=== PATIENT | male | born 1945 | race Caucasian/White ===

== ENCOUNTER 2019-02-19 19:12 | Inpatient (IN) | payer MEDICARE ==
[2019-02-19 19:42] LABS: #Basophils 0.1 thou/uL (0.0-0.2); #Eosinphils 0.3 thou/uL (0.0-0.7); #Lymphocytes 4.6 thou/uL (1.20-3.40); #Neutrophils 4.2 thou/uL (1.40-6.50); %Basophils 1.4 % (0.0-1.0); %Eosinophils 3.2 % (0.0-10.0); %Lymphocytes 45.1 % (21.0-51.0); %Monocytes 9.5 % (0.0-10.0); %Neutrophils 40.9 % (42.0-75.0); Hemoglobin 14.1 g/dL (14.0-18.0); Mean Corpuscular HGB CONC 31.5 g/dL (32.0-36.0); Mean Corpuscular Hemoglobin 30.4 pg (27.0-31.0); Mean Corpuscular Volume 96.5 fL (78.0-98.0); Mean Platelet Volume 7.5 fL (7.4-10.4); Platelet Count 195 thou/uL (130-400); RBC Distribution Width 12.9 % (11.5-14.5); Red Blood Cell (RBC) Count 4.65 mill/uL (4.70-6.10); White Blood Cell (WBC) Count 10.2 thou/uL (4.8-10.8)
[2019-02-19 19:48] LABS: Actual Bicarbonate (HCO3a) 13.5 mEq/L (22-28); Analyzer IN Cardio ER; Base Excess (BEa) -17.4 mEq/L (-2.0 to +3.0); Calcium, Ionized 1.17 mmol/L (1.12-1.30); Carboxyhemoglobin (COHb) 0.3 gm% (0.0-3.0); Hemoglobin (Hb) 12.7 g/dL (14.0-18.0); O2 Tension (PaO2) 139.5 mmHg (> 70.0); Potassium - ABG Lab 3.84 mmol/L (3.70-5.30)
[2019-02-19 19:49] LABS: INR-International Normal Ratio 1.1; PTT 36.5 SEC (22.9-36.1); Prothrombin Time 14.5 SEC (12.0-14.7)
[2019-02-19 19:52] LABS: Puncture Site RRA; pH, Arterial 7.02 (7.35-7.45)
[2019-02-19 19:53] LABS: ALT (SGPT) 114 U/L (8-55); AST (SGOT) 99 U/L (5-34); Alkaline Phosphatase 96 U/L (40-150); Anion Gap 23 mmol/L (10-20); BUN (Urea Nitrogen) 14 mg/dL (8.4-25.7); Bilirubin, Total 0.4 mg/dL (0.2-1.2); Calc. Creatinine Clearance 0 mL/min (70-130); Calcium 9.5 mg/dL (7.8-10.44); Carbon Dioxide 18 mmol/L (23-31); Chloride 98 mmol/L (98-107); Estimated GFR-MDRD 57; Glucose 171 mg/dL (83-110); Lipase 56 U/L (8-78); Potassium 3.9 mmol/L (3.5-5.1); Sodium 135 mmol/L (136-145)
[2019-02-19 19:57] LABS: Bilirubin Negative (Negative); Blood, Urine Trace (Negative); Clarity CLEAR (Clear); Glucose, Urine (Dipstick) Negative (Negative); Leukocyte Negative (Negative); Nitrite Negative (Negative); Protein, Urine (Dipstick) Negative (Neg-Trace); Specific Gravity, Urine 1.003 (1.002-1.036); Urobilinogen 0.2 mg/dL (0.2-1.0)
[2019-02-19 19:59] LABS: Bacteria/HPF None Seen HPF (None Seen); Hyaline Casts/LPF 0-3 HYALINE CAST LPF (0-3 Hyaline); Pathc Cast-AUWi Flag 0.13 (0-2.49); RBC/HPF 0-3 HPF (0-3); Squamous Epithelial 0-3 HPF (0-3); WBC/HPF 0-3 HPF (0-3)
--- NOTE | 2019-02-19 20:02 | RAD ---
RADIOGRAPH CHEST 1 VIEW: DATE: 02/19/2019 Time: 7:31 PM HISTORY: Status post intubation in 73-year-old male FINDINGS: There are no airspace densities, pulmonary edema, or cardiomegaly. The lateral costophrenic angles ar e sharp. The defibrillation paddle overlies right upper lobe. Dorsal column stimulator leads reaches midthoracic spine. It is uncertain whether this is a supine or upright image; no obvious pneu mothorax detected. Endotracheal tube distal tip is at the jerilyn. IMPRESSION: 1. No acute cardiopulmonary findings. 2. Endotracheal tube distal tip at jerilyn.
[2019-02-19] MEDS ORDERED: Fentanyl 100 MCG/2 ML VIAL ONE ×2 (20:04→22:19)
[2019-02-19] MEDS ORDERED: Norepinephrine 8 MG/0.9% NS 250 ML ONE (20:12)
[2019-02-19] MEDS ORDERED: Heparin 10,000 UNITS/1 ML VIAL ONE (20:13)
[2019-02-19] MEDS ORDERED: Bivalirudin 250 MG VIAL ONE (20:56)
[2019-02-19] MEDS ORDERED: Clopidogrel Bisulfate 300 MG TAB ONE (20:56)
[2019-02-19] MEDS ORDERED: Aspirin Chewable 81 MG TAB ONE (20:56)
[2019-02-19] MEDS ORDERED: Nitroglycerin 100MG/250ML BOT 250 ML ONE (20:57)
[2019-02-19 21:00] LABS: CKMB 1.9 ng/mL (0-6.6)
[2019-02-19] MEDS ORDERED: Morphine 2 MG/ML SYRINGE SLOW IVP PRN ×2 (21:08→21:34)
[2019-02-19] MEDS ORDERED: Morphine 4 MG/ML VIAL SLOW IVP PRN (21:08)
[2019-02-19] MEDS ORDERED: Sodium Chloride 0.9% 1,000 ML IV SCH (21:15)
[2019-02-19] MEDS ORDERED: DISCONTINUE PREVIOUS NARCOTIC PAIN MEDICATIONS AND BENZODIAZEPINES FS SCH (21:34)
[2019-02-19] MEDS ORDERED: Fentanyl BOLUS 250 ML IVPB PRN (21:34)
[2019-02-19] MEDS ORDERED: Propofol BOLUS 1,000 MG/100 ML VIAL IV PRN (21:34)
[2019-02-19] MEDS ORDERED: Propofol 1,000 MG/100 ML VIAL IV ONE (21:35)
[2019-02-19] MEDS ORDERED: Acetaminophen 1,000 MG in Premix Bag 1 BAG IVPB PRN (22:04)
[2019-02-19 22:11] LABS: #Basophils 0.1 thou/uL (0.0-0.2); #Eosinphils 0.2 thou/uL (0.0-0.7); #Lymphocytes 1.2 thou/uL (1.20-3.40); #Monocytes 0.9 thou/uL (0.11-0.59); #Neutrophils 14.3 thou/uL (1.40-6.50); %Basophils 0.4 % (0.0-1.0); %Eosinophils 1.1 % (0.0-10.0); %Lymphocytes 7.4 % (21.0-51.0); %Monocytes 5.2 % (0.0-10.0); Hemoglobin 13.3 g/dL (14.0-18.0); Mean Corpuscular HGB CONC 33.1 g/dL (32.0-36.0); Mean Corpuscular Hemoglobin 30.6 pg (27.0-31.0); Mean Corpuscular Volume 92.6 fL (78.0-98.0); Mean Platelet Volume 7.1 fL (7.4-10.4); Platelet Count 200 thou/uL (130-400); RBC Distribution Width 12.7 % (11.5-14.5); Red Blood Cell (RBC) Count 4.33 mill/uL (4.70-6.10); White Blood Cell (WBC) Count 16.6 thou/uL (4.8-10.8)
[2019-02-19] MEDS ORDERED: Vecuronium 10 MG VIAL ONE (22:18)
[2019-02-19 22:24] LABS: ALT (SGPT) 201 U/L (8-55); AST (SGOT) 234 U/L (5-34); Albumin 3.5 g/dL (3.4-4.8); Alkaline Phosphatase 105 U/L (40-150); Anion Gap 15 mmol/L (10-20); BUN (Urea Nitrogen) 15 mg/dL (8.4-25.7); Bilirubin, Total 0.5 mg/dL (0.2-1.2); Calc. Creatinine Clearance 0 mL/min (70-130); Calcium 8.2 mg/dL (7.8-10.44); Carbon Dioxide 22 mmol/L (23-31); Chloride 102 mmol/L (98-107); Estimated GFR-MDRD 64; Glucose 136 mg/dL (83-110); Potassium 4.5 mmol/L (3.5-5.1); Protein, Total 5.5 g/dL (5.8-8.1); Sodium 134 mmol/L (136-145)
[2019-02-19] MEDS ORDERED: Sterile Water 10 ML ONE (22:49)
[2019-02-19] MEDS: fentaNYL Citrate/PF 2,000 MCG in Sodium Chloride 0.9% 60 ML IV SCH (22:53)
[2019-02-19] MEDS ORDERED: Artificial Tears 18 DROP/0.9 ML EA EYE PRN (22:57)
[2019-02-19] MEDS ORDERED: Lidocaine 1% (PF) 30 ML VIAL SC SCH (23:00)
[2019-02-19] MEDS ORDERED: Lidocaine 1% (PF) 30 ML VIAL ONE (23:33)
[2019-02-19 23:37] LABS: #Lymphocytes 0.5 thou/uL (1.20-3.40); #Neutrophils 10.5 thou/uL (1.40-6.50); %Eosinophils 0.3 % (0.0-10.0); %Lymphocytes 3.9 % (21.0-51.0); %Monocytes 8.5 % (0.0-10.0); %Neutrophils 87.2 % (42.0-75.0); Hemoglobin 12.1 g/dL (14.0-18.0); Mean Corpuscular HGB CONC 33.4 g/dL (32.0-36.0); Mean Corpuscular Hemoglobin 31.1 pg (27.0-31.0); Mean Corpuscular Volume 93.3 fL (78.0-98.0); Mean Platelet Volume 7.2 fL (7.4-10.4); Platelet Count 151 thou/uL (130-400); RBC Distribution Width 12.7 % (11.5-14.5); Red Blood Cell (RBC) Count 3.89 mill/uL (4.70-6.10)
[2019-02-19 23:43] LABS: INR-International Normal Ratio 1.5; PTT 66.5 SEC (22.9-36.1); Prothrombin Time 18.4 SEC (12.0-14.7)
[2019-02-19 23:53] LABS: Lactic Acid 1.8 mmol/L (0.5-2.2)
[2019-02-19 23:56] LABS: Calcium 8.2 mg/dL (7.8-10.44); Magnesium 2.2 mg/dL (1.6-2.6); Phosphorus 2.4 mg/dL (2.3-4.7)
[2019-02-20 00:02] LABS: Anion Gap 13 mmol/L (10-20); BUN (Urea Nitrogen) 15 mg/dL (8.4-25.7); Calc. Creatinine Clearance 51 mL/min (70-130); Calcium 8.1 mg/dL (7.8-10.44); Carbon Dioxide 24 mmol/L (23-31); Chloride 102 mmol/L (98-107); Estimated GFR-MDRD 61; Glucose 133 mg/dL (83-110); Magnesium 2.3 mg/dL (1.6-2.6); Phosphorus 2.5 mg/dL (2.3-4.7); Potassium 3.9 mmol/L (3.5-5.1); Sodium 135 mmol/L (136-145)
--- NOTE | 2019-02-20 00:16 | HP ---
HISTORY: Boaz Harris is a 73-year-old white male, who has previous history of coronary artery stent placement at [facility] in [place]. After his catheterization procedure, records were obtained from [facility]. On October 07, 2017, he underwent placement of PROMUS 2.75 x 28 mm stent in the mid LAD post dilated with 3 mm balloon. His states that he just takes one aspirin a day. He does not take any statins. He was at [facility] on [address] when he started complaining of chest pain. He bent over to mushroom picker something and fell forward and was unresponsive. Bystander started CPR. When paramedics arrived, he was in ventricular fibrillation. He was shocked two times and then brought to the emergency room. In the emergency room, he received amiodarone 150 mg IV, magnesium and two amps of bicarb. EKG showed anterior ST-elevation myocardial infarction and it was felt best to take him to the wood preserving plant laborer, even though he was unresponsive. PAST MEDICAL HISTORY: Coronary artery disease, COPD, benign prostatic hypertrophy. MEDICATIONS: 1. Aspirin 81 mg q.a.m. 2. Flomax 0.4 mg daily. ALLERGIES: CODEINE. OPERATIONS: Unknown. SOCIAL HISTORY: Unknown. FAMILY HISTORY: Unknown. REVIEW OF SYSTEMS: Unobtainable. PHYSICAL EXAMINATION: VITAL SIGNS: Blood pressure 132/70, pulse of 115. HEENT: Pupils are sluggishly reactive to light. There was significant laceration over his right eyebrow. This will be tended after going to the cardiac wood preserving plant laborer. NECK: C-collar is in place. CHEST: Reveals late expiratory wheezing. CARDIOVASCULAR: S1 and S2 normal without any S3, S4, or murmurs. ABDOMEN: Normal bowel sounds without tenderness. EXTREMITIES: Revealed no edema. NEUROLOGICAL: The patient is unresponsive except to painful stimuli and does withdrawal. LABORATORY DATA: EKG revealed [address]-elevation in V2 and [address]-segment elevation in V3 through V5. Hemoglobin 14.1, hematocrit 44.9, white count 10, 200, platelets 195,000. PH 7.02, pCO2 of 54.0, PO2 of 139.5. Sodium 135, potassium 3.9, chloride 98, carbon dioxide 18, BUN 14, creatinine 1.25, troponin I 0.063, AST 99, and ALT 114. IMPRESSION: 1. Anterior ST-elevation myocardial infarction. 2. Previous placement of stent in the mid LAD. 3. Unknown cholesterol status. 4. History of asthma and chronic obstructive pulmonary disease. 5. Elevated liver function tests of uncertain etiology. It was seem like this would be too early to have elevated LFTs from shock liver and these will be followed closely. PLAN: It was felt best to take the patient to the wood preserving plant laborer emergently. Job ID: [id number] MTDD
[2019-02-20 00:33] LABS: CKMB 46.4 ng/mL (0-6.6)
--- NOTE | 2019-02-20 00:41 | CT ---
CT brain. HISTORY: Fall. Noncontrast enhanced CT images of the brain obtained. There is a right frontal scalp hematoma. A right periorbital hematoma is also present. No underlying calvarial fractures seen. There is diffuse cortical atrophy and deep white matter ischemic changes. No evidence of acute intracranial masses or hemorrhages seen. There is areas of increased density wit hin the arteries and intracranial sinuses compatible with recent IV contrast. IMPRESSION: Right frontal scalp and periorbital hematoma.
--- NOTE | 2019-02-20 00:41 | CT ---
CT cervical spine. HISTORY: Fall Axial images are obtained with coronal and sagittal reconstructions. Nasogastric and endotracheal tubes are in place. There is approximately 3 mm of anterolisthesis of C3 on C4 and 3 mm of C4 on C5. Multilevel facet deg enerative changes seen. 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 Changes of spondylosis with sclerotic endplate changes as well as anterior and posterior osteophytes and disc space height loss seen at C6-7. IMPRESSION: Degenerative changes in cervical spine with no evidence of acute cervical spine fracture seen.
[2019-02-20] MEDS ORDERED: Nitroglycerin 50 MG/250 ML BOT 250 ML IVPB SCH (01:00)
[2019-02-20] MEDS: Lorazepam 2 MG/ML VIAL SLOW IVP PRN (01:11)
[2019-02-20] MEDS ORDERED: Sterile Water 10 ML VIAL IVP PRN (01:51)
[2019-02-20] MEDS: Vecuronium 10 MG VIAL IV PRN ×2 (02:00→11:54)
[2019-02-20] MEDS: Propofol 1,000 MG/100 ML VIAL IV PRN (02:55)
--- NOTE | 2019-02-20 04:40 | CON ---
DATE OF CONSULTATION: 02/20/2019 TRAUMA SURGEON: Dr. Flower. HISTORY OF PRESENT ILLNESS: The patient is a 73-year-old male who presented to the emergency department earlier today after an CA. Family reported the patient was at [facility] when he had a syncopal fall striking his head. He was found to be pulseless and in ventricular tachycardia, bystanders started CPR. He was intubated in the field. Subsequently, brought to the emergency department. He was taken to the wharf laborer and a stent was placed. He then was admitted to the ICU. Trauma Surgery team was consulted at that time for evaluation of a laceration over his right brow. CT of the head and C-spine were also ordered for further evaluation for traumatic brain injury or cervical spinal injury. Upon my evaluation, the patient was intubated and sedated. His pupils were equal and reactive bilaterally. He moved his bilateral upper and lower extremities spontaneously, but was not following commands as he was intubated and sedated. Right sided brow wound was oozy and bleeding. The patient had received anticoagulation therapy as well as antiplatelets during his admission. REVIEW OF SYSTEMS: Unable to complete due to the patient's mental status. PAST MEDICAL HISTORY: COPD, BPH, unsure additional history as family is not present and the patient is unresponsive. PAST SURGICAL HISTORY: Unable to obtain due to mentation. SOCIAL HISTORY: Previous tobacco and alcohol use. MEDICATIONS: Unable to obtain due to mentation. ALLERGIES: UNABLE TO OBTAIN DUE TO MENTATION. PHYSICAL EXAMINATION: VITAL SIGNS: Temperature 98.2, pulse 103, respirations 23, oxygen saturation 100% on the ventilator, blood pressure 178/110. PRIMARY SURVEY: Airway intact. The patient intubated on ventilator. Adequate breath sounds bilaterally. 2+ pulses in the bilateral radials, femorals, DPs. GCS is eyes 2, verbal 1, motor 5, for a total of 8T. He has about a 3 cm avulsion laceration above the right brow with oozing, no significant bleeding, and some right periorbital edema and bruising. Head: Normocephalic, right-sided brow hematoma, bruising, and laceration. No other gross palpable skull deformities. EYES: Pupils equal, round, reactive to light, 3 to 2 bilaterally. ENT: No hemotympanum. No epistaxis. No septal hematoma. Midface stable to manipulation. No blood in the oropharynx. Dentition is intact. No anterior neck injury/crepitus/tenderness. No step-offs or deformities. Nontender. C-collar in place. CHEST: Nontender. No crepitus, no abrasions, or ecchymosis noted. Equal chest movement. ABDOMEN: Soft, nontender, nondistended. PELVIS: Stable to palpation, nontender, no abrasions or ecchymosis. RECTAL: Deferred. GENITOURINARY: Normal external genitalia. Very light hematuria. EXTREMITIES: No gross deformities. No abrasions or ecchymosis. 2+ pulses in bilateral radials, femorals, and DPs. BACK/SPINE: No step-offs or deformities or tenderness to palpation of the thoracic or lumbar spine. No abrasions or ecchymosis noted. NEURO: Moves all extremities spontaneously. LABORATORY FINDINGS: White count 12.0, hemoglobin 12.1, hematocrit 36.2, platelets 151. INR 1.5. Sodium 135, potassium 3.9, chloride 109, carbon dioxide 24, BUN 15, creatinine 1.18, glucose 133, phos 2.5, magnesium 2.3. Troponin 4.93. OBJECTIVE: 1. Chest x-ray demonstrates no acute cardiopulmonary findings, endotracheal tube to the tip of jerilyn. 2. CT of the brain demonstrates right frontal scalp and periorbital hematoma. 3. CT of the C-spine demonstrates degenerative changes in the cervical spine with no evidence of acute cervical spine fractures seen. ASSESSMENT: 1. Status post syncopal fall. 2. Myocardial infarction, status post catheterization by Cardiology. 3. Laceration to right brow. PLAN: The patient received a CT of the head and C-spine which were negative for injuries. C-collar was removed by the Trauma Service. Right brow laceration was closed with sutures. Sutures to stay in for 5 days. The patient does not require any further imaging by Trauma Department at this time. Trauma Team will complete a tertiary survey in the morning during rounds. Please contact Trauma Team if concern for further injuries are noted. The patient was seen and evaluated by Dr. Flower and myself this morning in the ICU. Job ID: [id number] [facility]
[2019-02-20 07:07] LABS: Actual Bicarbonate (HCO3a) 21.8 mEq/L (22-28); Base Excess (BEa) -3.4 mEq/L (-2.0 to +3.0); Calcium, Ionized 1.13 mmol/L (1.12-1.30); Carboxyhemoglobin (COHb) 0.5 gm% (0.0-3.0); Hemoglobin (Hb) 12.7 g/dL (14.0-18.0); O2 Tension (PaO2) 168.6 mmHg (> 70.0); Potassium - ABG Lab 3.48 mmol/L (3.70-5.30); pH, Arterial 7.36 (7.35-7.45)
[2019-02-20 07:08] LABS: Puncture Site RRA
[2019-02-20 08:02] LABS: #Lymphocytes 0.7 thou/uL (1.20-3.40); #Monocytes 1.8 thou/uL (0.11-0.59); #Neutrophils 16.1 thou/uL (1.40-6.50); %Eosinophils 0.1 % (0.0-10.0); %Lymphocytes 3.6 % (21.0-51.0); %Monocytes 9.9 % (0.0-10.0); %Neutrophils 86.4 % (42.0-75.0); Hemoglobin 12.8 g/dL (14.0-18.0); Mean Corpuscular HGB CONC 32.2 g/dL (32.0-36.0); Mean Corpuscular Hemoglobin 30.4 pg (27.0-31.0); Mean Corpuscular Volume 94.6 fL (78.0-98.0); Mean Platelet Volume 7.4 fL (7.4-10.4); Platelet Count 134 thou/uL (130-400); RBC Distribution Width 12.9 % (11.5-14.5); Red Blood Cell (RBC) Count 4.22 mill/uL (4.70-6.10); White Blood Cell (WBC) Count 18.6 thou/uL (4.8-10.8)
[2019-02-20 08:07] LABS: INR-International Normal Ratio 1.2; PTT 40.4 SEC (22.9-36.1); Prothrombin Time 15.7 SEC (12.0-14.7)
[2019-02-20] MEDS: Clopidogrel Bisulfate 75 MG TAB PER TUBE SCH (08:27)
[2019-02-20] MEDS: Aspirin Chewable 81 MG TAB PER TUBE SCH (08:27)
[2019-02-20] MEDS: Sodium Chloride 0.9% 1,000 ML IV SCH ×2 (08:28→20:47)
[2019-02-20 08:39] LABS: ALT (SGPT) 173 U/L (8-55); AST (SGOT) 216 U/L (5-34); Albumin 3.4 g/dL (3.4-4.8); Alkaline Phosphatase 91 U/L (40-150); Anion Gap 15 mmol/L (10-20); BUN (Urea Nitrogen) 16 mg/dL (8.4-25.7); Calc. Creatinine Clearance 59 mL/min (70-130); Calcium 8.7 mg/dL (7.8-10.44); Carbon Dioxide 20 mmol/L (23-31); Cardiac Risk 2.2 (Less than 4.5); Chloride 105 mmol/L (98-107); Cholesterol 145 mg/dl (< 200 Desired); Estimated GFR-MDRD 73; Globulin 1.9 g/dL (2.4-3.5); Glucose 109 mg/dL (83-110); HDL Cholesterol 65 mg/dL (>60 Neg Risk); LDL Cholesterol, Calculated 69 mg/dL; Magnesium 2.3 mg/dL (1.6-2.6); Phosphorus 2.6 mg/dL (2.3-4.7); Potassium 3.7 mmol/L (3.5-5.1); Protein, Total 5.3 g/dL (5.8-8.1); Sodium 136 mmol/L (136-145); Triglycerides 57 mg/dL (Less than 150)
--- NOTE | 2019-02-20 09:11 | CON ---
DATE OF CONSULTATION: 02/20/2019 HISTORY OF PRESENT ILLNESS: Boaz Harris is a 73-year-old gentleman. I spoke to his son this morning. The patient sees [facility] physician, who apparently was at [facility] checking out when he had chest pain and proceeded to have ventricular cardiac arrhythmias. En route CPR was performed for apparently 10 minutes, he was intubated. He received 200 and 300 joules. He had pulseless electrical activity with VFib. He then received 2 rounds of epinephrine, 180 mg of ketamine, intubated. During his fall, he sustained injury to his right eyebrow and frontal area. C-collar was placed in. was present last night. She was at home sleeping. He sees [facility] physician. Previous cardiac history is noted by Dr. Monk, local shot core drill operator helper. PAST MEDICAL HISTORY: COPD, tobacco abuse, quit smoking years ago, asthma, hypertension, back pain. ALLERGIES: CODEINE. MEDICATIONS: Home medicine unknown. Additional information is obtained by Dr. Monk from the includes previous cath at [facility] in October 2017, but a year ago, placement of his stent in the mid LAD. Dr. Monk stated this was completely occluded. He underwent emergency cardiac cath and a stent insertion. His initial EKG showed anterior segment myocardial infarction. SOCIAL AND FAMILY HISTORY: Unobtainable. PHYSICAL EXAMINATION: GENERAL: His sedation . He is on a cooling protocol. VITAL SIGNS: Pulse is 73, blood pressure is 105/71, saturations are 100%, respiratory rate is 20. HEENT: Pupils are equal. He has traumatic right frontal lobe bruise with his sutures there. CHEST: Decreased breath sounds. No wheezing. CARDIAC: Normal S1 and S2. No gallops. ABDOMEN: No masses. NEUROLOGIC: Difficult to assess at this stage. LABORATORY DATA: PO2 is 168, pCO2 40, pH 7.36, on a 60%, 500 of tidal volume. His lytes are normal. Creatinine is slightly elevated at 1.8. GFR is 61. Troponin is 4.93. AST is 234. IMAGING STUDIES: CT brain showed evidence of, as noted, right frontal scalp and periorbital hematoma. C-spine was negative. Chest x-ray was clear. IMPRESSION: 1. Status post cardiac arrest pulseless electrical activity at least 6 minutes before being intubated before circulation was restored. 2. Emergency cardiac catheterization with a stent placed in as per Dr. Monk's note. 3. Abnormal liver function test. 4. Chronic obstructive pulmonary disease. 5. Mild azotemia. PLAN: He is on Norcuron for his hypothermia protocol. He is on fentanyl sedation. He has been given Plavix and supportive care. We will continue vent support, wean when stable. Get additional information as family arrives. This is a 45-minute critical care time. Job ID: [id number]
--- NOTE | 2019-02-20 09:19 | RAD ---
EXAM: Portable chest INDICATIONS: Ventilator follow-up COMPARISON: 02/19/2019 FINDINGS: ET tube, NG tube, and dorsal stimulator leads are unchanged. Increasing parenchymal opacity in the medial right lung base consistent with infiltrate and/or atelec tasis. Vascular markings normal. Heart size normal. IMPRESSION: Increasing parenchymal opacity in the medial right lung base.
[2019-02-20 11:05] LABS: Actual Bicarbonate (HCO3a) 24.7 mEq/L (22-28); Base Excess (BEa) -2.6 mEq/L (-2.0 to +3.0); Calcium, Ionized 1.16 mmol/L (1.12-1.30); Carboxyhemoglobin (COHb) 0.6 gm% (0.0-3.0); Hemoglobin (Hb) 13.1 g/dL (14.0-18.0); O2 Tension (PaO2) 64.3 mmHg (> 70.0); Potassium - ABG Lab 4.34 mmol/L (3.70-5.30); pH, Arterial 7.29 (7.35-7.45)
[2019-02-20 11:08] LABS: Puncture Site RBA
--- NOTE | 2019-02-20 11:48 | PRG ---
DATE OF SERVICE: 02/20/2019 SUBJECTIVE: Mr. Harris is a 73-year-old man, who is admitted following VFib cardiac arrest with apparent myocardial infarction, status post cardiac catheterization. He has fallen, striking his head apparently at the time of his cardiac event. He sustained laceration to right eyebrow, which has been repaired by Trauma. I have personally reviewed his head and cervical spine CT scan obtained last night as part of my evaluation, which revealed no acute intracranial pathology or cervical spine trauma. Currently, the patient is on full mechanical ventilator support. He is in fact sedated and pharmacologically paralyzed. He remains therefore unavailable for any neurological or physical examination. The repaired laceration remains intact. No significant associated soft tissue hematoma present. Trauma Surgery would therefore sign off this case at this time and further management to the Critical Care and Cardiology Services respectively. Job ID: [id number]
[2019-02-20 12:16] LABS: #Lymphocytes 0.5 thou/uL (1.20-3.40); #Monocytes 0.7 thou/uL (0.11-0.59); #Neutrophils 11.6 thou/uL (1.40-6.50); %Eosinophils 0.2 % (0.0-10.0); %Lymphocytes 3.7 % (21.0-51.0); %Monocytes 5.8 % (0.0-10.0); %Neutrophils 90.3 % (42.0-75.0); Hemoglobin 12.9 g/dL (14.0-18.0); Mean Corpuscular HGB CONC 32.5 g/dL (32.0-36.0); Mean Corpuscular Hemoglobin 30.6 pg (27.0-31.0); Mean Corpuscular Volume 94.2 fL (78.0-98.0); Mean Platelet Volume 7.3 fL (7.4-10.4); Platelet Count 148 thou/uL (130-400); RBC Distribution Width 12.9 % (11.5-14.5); Red Blood Cell (RBC) Count 4.21 mill/uL (4.70-6.10); White Blood Cell (WBC) Count 12.8 thou/uL (4.8-10.8)
[2019-02-20 12:20] LABS: INR-International Normal Ratio 1.2; PTT 35.5 SEC (22.9-36.1); Prothrombin Time 15.1 SEC (12.0-14.7)
[2019-02-20 12:44] LABS: Anion Gap 12 mmol/L (10-20); BUN (Urea Nitrogen) 16 mg/dL (8.4-25.7); Calc. Creatinine Clearance 59 mL/min (70-130); Calcium 8.7 mg/dL (7.8-10.44); Carbon Dioxide 25 mmol/L (23-31); Chloride 103 mmol/L (98-107); Estimated GFR-MDRD 72; Glucose 97 mg/dL (83-110); Magnesium 2.3 mg/dL (1.6-2.6); Phosphorus 3.7 mg/dL (2.3-4.7); Potassium 4.3 mmol/L (3.5-5.1); Sodium 136 mmol/L (136-145)
[2019-02-20 13:12] LABS: CKMB 121.4 ng/mL (0-6.6)
[2019-02-20 18:12] LABS: Hemoglobin 14.3 g/dL (14.0-18.0); Mean Corpuscular HGB CONC 32.5 g/dL (32.0-36.0); Mean Corpuscular Hemoglobin 30.6 pg (27.0-31.0); Mean Corpuscular Volume 94.2 fL (78.0-98.0); Mean Platelet Volume 7.6 fL (7.4-10.4); Platelet Count 164 thou/uL (130-400); Red Blood Cell (RBC) Count 4.66 mill/uL (4.70-6.10); White Blood Cell (WBC) Count 10.8 thou/uL (4.8-10.8)
[2019-02-20 18:20] LABS: INR-International Normal Ratio 1.1; Prothrombin Time 14.5 SEC (12.0-14.7)
[2019-02-20 18:26] LABS: Band 30 % (5-11); Lymphocytes 3 % (21-51); MDiff Complete? YES; Metamyelocyte 1 % (0-0); Monocytes 5 % (0-10); Neutrophil 60 % (42-75); Platelet Morphology Comment Appears Adequate; RBC Morphology Normal; Toxic Granulation SLIGHT; Vacuoles SLIGHT
[2019-02-20 18:37] LABS: Anion Gap 13 mmol/L (10-20); BUN (Urea Nitrogen) 16 mg/dL (8.4-25.7); Calc. Creatinine Clearance 48 mL/min (70-130); Carbon Dioxide 27 mmol/L (23-31); Chloride 103 mmol/L (98-107); Estimated GFR-MDRD 57; Glucose 95 mg/dL (83-110); Magnesium 2.2 mg/dL (1.6-2.6); Phosphorus 4.2 mg/dL (2.3-4.7); Potassium 4.9 mmol/L (3.5-5.1); Sodium 138 mmol/L (136-145)
[2019-02-20 19:19] LABS: CKMB 89.2 ng/mL (0-6.6); Critical Call CKMB RESULT DECREASING
[2019-02-20] MEDS: Cefepime 1 GM in Sodium Chloride 0.9% 100 ML IVPB SCH (20:44)
[2019-02-20] MEDS: fentaNYL Citrate/PF 2,000 MCG in Sodium Chloride 0.9% 60 ML IV SCH (21:59)
[2019-02-20] MEDS ORDERED: Norepinephrine 8 MG/250 ML BAG IVPB PRN (23:44)
[2019-02-21] MEDS: Propofol 1,000 MG/100 ML VIAL IV PRN (00:09)
[2019-02-21] MEDS: Sodium Chloride 0.9% 1,000 ML IV SCH ×3 (01:30→21:50)
[2019-02-21] MEDS ORDERED: Sodium Chloride 0.9% 250 ML IVPB SCH (01:30)
[2019-02-21 06:45] LABS: Hemoglobin 12.2 g/dL (14.0-18.0); Mean Corpuscular HGB CONC 31.9 g/dL (32.0-36.0); Mean Corpuscular Hemoglobin 30.2 pg (27.0-31.0); Mean Corpuscular Volume 94.7 fL (78.0-98.0); Mean Platelet Volume 7.7 fL (7.4-10.4); Platelet Count 147 thou/uL (130-400); RBC Distribution Width 13.3 % (11.5-14.5); Red Blood Cell (RBC) Count 4.03 mill/uL (4.70-6.10); White Blood Cell (WBC) Count 11.8 thou/uL (4.8-10.8)
[2019-02-21 07:01] LABS: Phosphorus 4.7 mg/dL (2.3-4.7)
[2019-02-21 07:04] LABS: ALT (SGPT) 112 U/L (8-55); AST (SGOT) 129 U/L (5-34); Albumin 2.9 g/dL (3.4-4.8); Alkaline Phosphatase 68 U/L (40-150); Anion Gap 14 mmol/L (10-20); BUN (Urea Nitrogen) 25 mg/dL (8.4-25.7); Bilirubin, Total 0.7 mg/dL (0.2-1.2); Calc. Creatinine Clearance 35 mL/min (70-130); Calcium 8.3 mg/dL (7.8-10.44); Carbon Dioxide 23 mmol/L (23-31); Chloride 105 mmol/L (98-107); Estimated GFR-MDRD 40; Globulin 1.8 g/dL (2.4-3.5); Glucose 107 mg/dL (83-110); Potassium 4.9 mmol/L (3.5-5.1); Protein, Total 4.7 g/dL (5.8-8.1); Sodium 137 mmol/L (136-145)
[2019-02-21 07:38] LABS: Base Excess (BEa) -4.6 mEq/L (-2.0 to +3.0); CO2 Tension 46.2 mmHg (35.0-45.0); Calcium, Ionized 1.15 mmol/L (1.12-1.30); Hemoglobin (Hb) 12.7 g/dL (14.0-18.0); O2 Tension (PaO2) 75.3 mmHg (> 70.0); Potassium - ABG Lab 4.63 mmol/L (3.70-5.30)
[2019-02-21 07:39] LABS: Puncture Site RRA
[2019-02-21 08:06] LABS: Band 46 % (5-11); Eosinophils 1 % (0-10); Lymphocytes 11 % (21-51); MDiff Complete? YES; Monocytes 2 % (0-10); Neutrophil 40 % (42-75); Platelet Morphology Comment Appears Adequate; RBC Morphology Normal
[2019-02-21] MEDS: Cefepime 1 GM in Sodium Chloride 0.9% 100 ML IVPB SCH ×2 (08:35→21:48)
[2019-02-21] MEDS: Clopidogrel Bisulfate 75 MG TAB PER TUBE SCH (08:36)
[2019-02-21] MEDS: Aspirin Chewable 81 MG TAB PER TUBE SCH (08:36)
--- NOTE | 2019-02-21 08:40 | RAD ---
CHEST 1 VIEW: HISTORY: Respiratory insufficiency. COMPARISON: 02/20/2019. FINDINGS: Life support tubes remain in place. Dorsal column stimulator leads. Bilateral patchy perihilar and bilateral lower lobe interstitial and alveolar opacity changes have worsened since the prior study co ncerning for pneumonia, pneumonitis, or edema. IMPRESSION: Worsening bilateral mid and lower lung zone interstitial and alveolar parenchymal changes, evidence f or pneumonia or pneumonitis versus asymmetric pulmonary edema. Continue short-term followup for pablo ring or stability. POS: OFF
--- NOTE | 2019-02-21 09:47 | PRG ---
DATE OF SERVICE: 02/21/2019 SUBJECTIVE: This morning, he is intubated in the vent, still sedated. OBJECTIVE: VITAL SIGNS: Pulse 75, blood pressure 110/67, saturations are 90%, and respirations 20. HEENT: Pupils are equal. pin point. CHEST: Decreased breath sounds. No wheezing. CARDIAC: Normal S1 and S2. No gallops. ABDOMEN: No masses. LABORATORY DATA: White count 11,000, hemoglobin and hematocrit 12 and 38, and platelet count is 147. He has a big left shift. Creatinine was increased to 1.70. IMPRESSION: 1. Myocardial infarction status post emergent stent. 2. Traumatic fall, right frontal laceration. 3. Azotemia. 4. Probably anoxic injury. PLAN: 1. We will stop all sedation and paralytics. Continue antibiotics. 2. Assess his neurological status once he is off all sedation. Family to make a decision long-term care and input. 3. We will start nutrition in the meantime and PT. 4. One-half hour of critical time. Job ID: [id number] [facility]
--- NOTE | 2019-02-21 12:02 | EKG ---
Test Reason : Blood Pressure : / mmHG Vent. Rate : 059 BPM Atrial Rate : 115 BPM P-R Int : 000 ms QRS Dur : 076 ms QT Int : 538 ms P-R-T Axes : 000 088 137 degrees QTc Int : 532 ms Poor EKG quality likely electrical interference Probable atrial fibrillation with slow ventricular response Inferior infarct , age undetermined Severe anterolateral ischemia Prolonged QT Abnormal ECG When compared with ECG of 19-FEB-2019 19:42, (Unconfirmed) Significant changes have occurred Confirmed by DR. oLra RAMIREZ ([id number]) on 02/21/2019 12:01:54 PM Referred By: JEREL Confirmed By:DR. Lora RAMIREZ
[2019-02-22] MEDS: Propofol 1,000 MG/100 ML VIAL IV PRN (04:06)
[2019-02-22 05:32] LABS: ALT (SGPT) 99 U/L (8-55); AST (SGOT) 181 U/L (5-34); Albumin 2.7 g/dL (3.4-4.8); Alkaline Phosphatase 62 U/L (40-150); Anion Gap 13 mmol/L (10-20); BUN (Urea Nitrogen) 36 mg/dL (8.4-25.7); Bilirubin, Total 0.6 mg/dL (0.2-1.2); Calc. Creatinine Clearance 36 mL/min (70-130); Calcium 8.3 mg/dL (7.8-10.44); Carbon Dioxide 20 mmol/L (23-31); Chloride 109 mmol/L (98-107); Estimated GFR-MDRD 42; Globulin 1.9 g/dL (2.4-3.5); Glucose 111 mg/dL (83-110); Potassium 4.8 mmol/L (3.5-5.1); Protein, Total 4.6 g/dL (5.8-8.1); Sodium 137 mmol/L (136-145)
[2019-02-22 05:33] LABS: #Lymphocytes 0.4 thou/uL (1.20-3.40); #Monocytes 0.7 thou/uL (0.11-0.59); #Neutrophils 5.2 thou/uL (1.40-6.50); %Basophils 0.3 % (0.0-1.0); %Eosinophils 0.3 % (0.0-10.0); %Lymphocytes 6.8 % (21.0-51.0); %Monocytes 11.5 % (0.0-10.0); %Neutrophils 81.2 % (42.0-75.0); Hemoglobin 9.9 g/dL (14.0-18.0); Mean Corpuscular HGB CONC 33.2 g/dL (32.0-36.0); Mean Corpuscular Hemoglobin 31.5 pg (27.0-31.0); Mean Platelet Volume 8.5 fL (7.4-10.4); Platelet Count 91 thou/uL (130-400); Platelet Morphology Comment Appears Decreased; RBC Distribution Width 13.4 % (11.5-14.5); Red Blood Cell (RBC) Count 3.12 mill/uL (4.70-6.10); White Blood Cell (WBC) Count 6.4 thou/uL (4.8-10.8)
[2019-02-22 07:30] LABS: Actual Bicarbonate (HCO3a) 21.6 mEq/L (22-28); Base Excess (BEa) -3.4 mEq/L (-2.0 to +3.0); CO2 Tension 38.5 mmHg (35.0-45.0); Calcium, Ionized 1.18 mmol/L (1.12-1.30); Carboxyhemoglobin (COHb) 1.3 gm% (0.0-3.0); Hemoglobin (Hb) 10.9 g/dL (14.0-18.0); O2 Tension (PaO2) 72.9 mmHg (> 70.0); Potassium - ABG Lab 4.59 mmol/L (3.70-5.30); pH, Arterial 7.37 (7.35-7.45)
--- NOTE | 2019-02-22 07:43 | RAD ---
EXAM: CHEST ONE VIEW HISTORY: On ventilator. Follow-up evaluation. COMPARISON: 02/21/2019 FINDINGS: Endotracheal tube and nasogastric tubes remain in place unchanged in position. Distal aspect of the n asogastric tube is not visualized. Dorsal column stimulator leads again overlie the thoracic spine. Cardiac silhouette and pulmonary vasculature are within normal limits. There are increased interstiti al densities within the lungs bilaterally greater at each lung base not significantly changed compared to prior study given differences in technique. Vascular calcific lesions are again seen in t he thoracic aorta. No other interval change. IMPRESSION: Increased interstitial densities predominantly at each lung base and perihilar regions which may be r elated to infectious process, and atypical infectious process is a possibility. Asymmetric pulmonary edema is a differential consideration.
[2019-02-22] MEDS: Sodium Chloride 0.9% 1,000 ML IV SCH ×2 (07:54→18:52)
[2019-02-22] MEDS: Cefepime 1 GM in Sodium Chloride 0.9% 100 ML IVPB SCH ×2 (07:54→20:27)
[2019-02-22] MEDS: Aspirin Chewable 81 MG TAB PER TUBE SCH (07:56)
[2019-02-22] MEDS: Clopidogrel Bisulfate 75 MG TAB PER TUBE SCH (07:56)
[2019-02-22 08:08] LABS: Puncture Site L.R.
[2019-02-22 08:09] LABS: ALV-art Gradient 164.175 (0-20)
--- NOTE | 2019-02-22 08:13 | PRG ---
DATE OF SERVICE: 02/22/2019 SUBJECTIVE: This morning, his Diprivan was turned off. He was very agitated, biting his endotracheal tube, had to restart Diprivan. OBJECTIVE: VITAL SIGNS: Blood pressure is slightly elevated 170/80, respiratory rate 22, sats 100%. He is afebrile though yesterday's temperature 100.8. His I's and O's have been consistently good 3363 in and 1086 out. CHEST: Decreased breath sounds. Minimal rhonchi. CARDIAC: Normal S1, S2. No gallops. ABDOMEN: No masses. LABORATORY DATA: Creatinine 1.64, improved from yesterday. BUN is still 36. His albumin is 2.7. Liver function slightly elevated. AST is 181. X-ray shows bilateral lower lung infiltrates. Platelet count is low 91,000. IMPRESSION: 1. Status post cardiac arrest emergency stent. 2. Encephalopathy. 3. Probably anoxic injury. 4. Probably aspiration pneumonia. 5. Thrombocytopenia. He is on broad-spectrum antibiotics Plavix, supportive care. Ativan as needed. I will discuss with family when they arrive. Discuss with Cardiology, when they arrive. Overall, this is a one-half hour of critical time. Job ID: [id number]
[2019-02-22] MEDS ORDERED: Bacteriostatic Water 30 ML VIAL FS PRN (08:44)
[2019-02-22] MEDS: methylPREDNISolone Sod Succ 40 MG VIAL IVP SCH ×2 (09:00→20:28)
[2019-02-22] MEDS ORDERED: Sodium Chloride 0.9% (PF) 10 ML VIAL FS PRN (09:00)
[2019-02-22] MEDS ORDERED: Pantoprazole 40 MG VIAL IVP SCH ×2 (09:00→10:00)
[2019-02-22] MEDS ORDERED: Furosemide 40 MG/4 ML VIAL SLOW IVP SCH (09:15)
[2019-02-22] MEDS: fentaNYL Citrate/PF 2,000 MCG in Sodium Chloride 0.9% 60 ML IV SCH (11:19)
--- NOTE | 2019-02-22 12:07 | OP ---
DATE OF PROCEDURE: 02/22/2019 He bit his endotracheal tube, unable to get any return of tidal volume. Extremely agitated off sedation. Saturations are okay. His vital signs are otherwise stable. It was felt that he needs a new endotracheal tube. The old endotracheal tube was removed. A bite block was placed in, and a 7.5 endotracheal tube was passed via the bronchoscope above the jerilyn. Tube was secured. Air was inflated in the cuff. He was bagged. Saturations are 100%. He was restarted on Diprivan. Bronchoscope was repassed again and there was some pus in the right lung, which was suctioned and lavaged to clear. The patient connected to a volume-cycle respirator. I discussed with his family at length multiple times that we are not going to be able to extubate him until his encephalopathy gets better. They want to get a Neurology input. We will try and get Neurology to see the patient in the next several days. Job ID: [id number]
[2019-02-23] MEDS: Sodium Chloride 0.9% 1,000 ML IV SCH ×2 (04:38→17:05)
[2019-02-23 05:02] LABS: ALT (SGPT) 108 U/L (8-55); AST (SGOT) 228 U/L (5-34); Albumin 2.6 g/dL (3.4-4.8); Alkaline Phosphatase 57 U/L (40-150); Anion Gap 10 mmol/L (10-20); BUN (Urea Nitrogen) 39 mg/dL (8.4-25.7); Bilirubin, Total 0.5 mg/dL (0.2-1.2); Calc. Creatinine Clearance 44 mL/min (70-130); Calcium 8.5 mg/dL (7.8-10.44); Carbon Dioxide 26 mmol/L (23-31); Chloride 108 mmol/L (98-107); Estimated GFR-MDRD 52; Glucose 224 mg/dL (83-110); Potassium 4.4 mmol/L (3.5-5.1); Protein, Total 4.6 g/dL (5.8-8.1); Sodium 140 mmol/L (136-145)
[2019-02-23 05:13] LABS: Band 16 % (5-11); Hemoglobin 8.5 g/dL (14.0-18.0); Lymphocytes 2 % (21-51); MDiff Complete? YES; Mean Corpuscular HGB CONC 32.6 g/dL (32.0-36.0); Mean Corpuscular Hemoglobin 30.9 pg (27.0-31.0); Mean Corpuscular Volume 94.8 fL (78.0-98.0); Mean Platelet Volume 8.9 fL (7.4-10.4); Monocytes 7 % (0-10); Neutrophil 75 % (42-75); Platelet Count 76 thou/uL (130-400); Platelet Morphology Comment Appears Decreased; RBC Distribution Width 13.1 % (11.5-14.5); Red Blood Cell (RBC) Count 2.75 mill/uL (4.70-6.10)
[2019-02-23] MEDS: Cefepime 1 GM in Sodium Chloride 0.9% 100 ML IVPB SCH ×2 (08:41→20:14)
[2019-02-23] MEDS: methylPREDNISolone Sod Succ 40 MG VIAL IVP SCH ×2 (08:41→20:14)
[2019-02-23] MEDS: Pantoprazole 40 MG VIAL IVP SCH (08:42)
[2019-02-23] MEDS: Clopidogrel Bisulfate 75 MG TAB PER TUBE SCH (08:42)
[2019-02-23] MEDS: Aspirin Chewable 81 MG TAB PER TUBE SCH (08:42)
[2019-02-23 08:50] LABS: Actual Bicarbonate (HCO3a) 25.7 mEq/L (22-28); Base Excess (BEa) 0.8 mEq/L (-2.0 to +3.0); Calcium, Ionized 1.22 mmol/L (1.12-1.30); Carboxyhemoglobin (COHb) 0.5 gm% (0.0-3.0); Hemoglobin (Hb) 9.6 g/dL (14.0-18.0); O2 Tension (PaO2) 90.4 mmHg (> 70.0); Potassium - ABG Lab 4.24 mmol/L (3.70-5.30)
--- NOTE | 2019-02-23 08:53 | PRG ---
DATE OF SERVICE: 02/23/2019 SUBJECTIVE: This morning, he is intubated in the vent. He is on Precedex, less agitated. Clearly once the medicine is decreased, he is agitated, he bit his tube. OBJECTIVE: VITAL SIGNS: Pulse 66, blood pressure 93/74, sats 90%, respirations 21, I's and O's have been slightly ahead. CHEST: Bilateral rhonchi. CARDIAC: Normal S1, S2. No gallops. ABDOMEN: No masses. LABORATORY DATA: Creatinine 1.3. BNP is 312, AST is 228. White count 4000, platelet count decreased. ASSESSMENT: 1. Anoxic injury, status post ventricular fibrillation. Status post emergent catheterization with a stent. 2. Chronic obstructive pulmonary disease. 3. Pneumonia. 4. Encephalopathy. PLAN: He is not weanable until his neurological status improves. His echocardiogram shows evidence of hypokinetic apical septal wall, left ventricle. No estimated ejection fraction was given at this stage. Continue supportive care, nutrition, PT, antibiotics. Wean when he is stable. One-half hour of critical time. Job ID: [id number]
[2019-02-23] MEDS ORDERED: Pantoprazole 40 MG VIAL IVP SCH (09:00)
[2019-02-23 09:08] LABS: Puncture Site LBA
--- NOTE | 2019-02-23 09:18 | RAD ---
CHEST 1 VIEW: HISTORY: Dyspnea. Followup. COMPARISON: 02/22/2019. HISTORY: Dyspnea. FINDINGS: Cardiac silhouette is unremarkable. Pulmonary vasculature more engorged than on the prior study with slight interval worsening and widespread reticulonodular interstitial prominence and patchy bibasila r infiltrates. Mediastinum is midline. Lines and tubes appear unchanged in position. Calcification in the aorta. No evidence of pneumothorax. IMPRESSION: Slight interval progression in pulmonary vascular congestion. Chronic interstitial markings and othe r findings are otherwise stable. POS: TPC
[2019-02-23] MEDS: Lorazepam 2 MG/ML VIAL SLOW IVP PRN ×2 (10:10→22:30)
[2019-02-23] MEDS: fentaNYL Citrate/PF 2,000 MCG in Sodium Chloride 0.9% 60 ML IV SCH (23:02)
[2019-02-24] MEDS: Sodium Chloride 0.9% 1,000 ML IV SCH ×2 (00:20→05:04)
[2019-02-24 06:01] LABS: #Lymphocytes 0.2 thou/uL (1.20-3.40); #Monocytes 0.4 thou/uL (0.11-0.59); #Neutrophils 3.8 thou/uL (1.40-6.50); %Basophils 0.1 % (0.0-1.0); %Eosinophils 0.2 % (0.0-10.0); %Lymphocytes 3.4 % (21.0-51.0); %Monocytes 9.1 % (0.0-10.0); %Neutrophils 87.2 % (42.0-75.0); Mean Corpuscular Hemoglobin 31.5 pg (27.0-31.0); Mean Corpuscular Volume 95.5 fL (78.0-98.0); Mean Platelet Volume 8.4 fL (7.4-10.4); Platelet Count 92 thou/uL (130-400); RBC Distribution Width 13.5 % (11.5-14.5); Red Blood Cell (RBC) Count 2.85 mill/uL (4.70-6.10); White Blood Cell (WBC) Count 4.3 thou/uL (4.8-10.8)
[2019-02-24 06:21] LABS: ALT (SGPT) 121 U/L (8-55); AST (SGOT) 194 U/L (5-34); Albumin 2.9 g/dL (3.4-4.8); Alkaline Phosphatase 60 U/L (40-150); Anion Gap 11 mmol/L (10-20); BUN (Urea Nitrogen) 35 mg/dL (8.4-25.7); Bilirubin, Total 0.6 mg/dL (0.2-1.2); Calc. Creatinine Clearance 62 mL/min (70-130); Carbon Dioxide 25 mmol/L (23-31); Chloride 113 mmol/L (98-107); Estimated GFR-MDRD 78; Globulin 2.1 g/dL (2.4-3.5); Glucose 152 mg/dL (83-110); Potassium 4.5 mmol/L (3.5-5.1); Sodium 144 mmol/L (136-145)
[2019-02-24] MEDS: Lorazepam 2 MG/ML VIAL SLOW IVP PRN (07:22)
[2019-02-24] MEDS: Clopidogrel Bisulfate 75 MG TAB PER TUBE SCH (08:47)
[2019-02-24] MEDS: Cefepime 1 GM in Sodium Chloride 0.9% 100 ML IVPB SCH ×2 (08:47→21:52)
[2019-02-24] MEDS: Pantoprazole 40 MG VIAL IVP SCH (08:47)
[2019-02-24] MEDS: methylPREDNISolone Sod Succ 40 MG VIAL IVP SCH (08:48)
[2019-02-24] MEDS: Aspirin Chewable 81 MG TAB PER TUBE SCH (09:09)
--- NOTE | 2019-02-24 10:15 | PRG ---
DATE OF SERVICE: 02/24/2019 SERVICE: Pulmonary Medicine. INTERVAL HISTORY: The patient is actually doing quite well from mentation standpoint. This morning, he opens up his eyes on command. He wiggles his fingers, puts up his thumb, and wiggles his toe on command. That being said , he demonstrates pretty profound weakness. He cannot provide any additional elements of the history at this point. Otherwise, there has been no interval change to his condition. PHYSICAL EXAMINATION: VITAL SIGNS: Afebrile, pulse 63, blood pressure 130/73, respirations 14, and saturation 93% on 23% FiO2 and a PEEP of 5. GENERAL: The patient is awake and alert. The patient is intubated under the influence of some sedation. HEENT: Normocephalic and atraumatic. Sclerae white. Conjunctivae pink. Oral mucosa is moist without lesions. LUNGS: Decent air entry. There is no prolonged expiratory phase. Rhonchi are present. No wheezing or crackles are appreciated. HEART: Normal rate and regular. ABDOMEN: Soft, nontender, and nondistended. Bowel sounds are positive. MUSCULOSKELETAL: No cyanosis or clubbing. No pitting in the bilateral lower extremities. NEUROLOGIC: Grossly nonfocal. LABORATORY DATA: WBC 4.3, hemoglobin 9.0, platelets 92,000, and rebounding. INR 1.1. Creatinine 0.95 and improving. Basic metabolic profile is unremarkable except for an uptrending sodium and chloride. Urinalysis is unremarkable. IMAGING STUDIES: Chest x-ray shows stable findings. Chronic interstitial markings are noted. Lines and tubes remain in good position. ASSESSMENT: 1. Acute hypoxic respiratory failure. 2. Acute myocardial infarction, status post percutaneous coronary intervention with stent placement. 3. Anoxic brain injury, improving. 4. Community-acquired pneumonia. 5. Chronic obstructive pulmonary disease. DISCUSSION AND PLAN: The patient is doing absolutely wonderful from a mentation standpoint. We will introduce a little bit of free water. We will minimize our sedation through time. When he wakes up, spontaneous breathing trial and subsequent extubation will be considered. Pulmonary/Critical Care will continue to follow closely. Critical care time: 30 minutes. Job ID: [id number] MTDD
[2019-02-24] MEDS: Sodium Chloride 0.45% 1,000 ML IV SCH (11:50)
[2019-02-25] MEDS: Sodium Chloride 0.45% 1,000 ML IV SCH (05:35)
[2019-02-25 06:37] LABS: ALT (SGPT) 123 U/L (8-55); AST (SGOT) 153 U/L (5-34); Albumin 2.6 g/dL (3.4-4.8); Alkaline Phosphatase 68 U/L (40-150); Anion Gap 13 mmol/L (10-20); BUN (Urea Nitrogen) 40 mg/dL (8.4-25.7); Bilirubin, Total 0.7 mg/dL (0.2-1.2); Calc. Creatinine Clearance 69 mL/min (70-130); Carbon Dioxide 22 mmol/L (23-31); Chloride 116 mmol/L (98-107); Estimated GFR-MDRD 89; Globulin 2.2 g/dL (2.4-3.5); Glucose 112 mg/dL (83-110); Magnesium 2.8 mg/dL (1.6-2.6); Phosphorus 2.2 mg/dL (2.3-4.7); Potassium 5.2 mmol/L (3.5-5.1); Protein, Total 4.8 g/dL (5.8-8.1); Sodium 146 mmol/L (136-145)
[2019-02-25 07:27] LABS: #Lymphocytes 0.5 thou/uL (1.20-3.40); #Monocytes 0.7 thou/uL (0.11-0.59); #Neutrophils 4.1 thou/uL (1.40-6.50); %Basophils 0.2 % (0.0-1.0); %Eosinophils 0.1 % (0.0-10.0); %Lymphocytes 10.2 % (21.0-51.0); %Monocytes 12.5 % (0.0-10.0); Hemoglobin 9.2 g/dL (14.0-18.0); Mean Corpuscular HGB CONC 32.6 g/dL (32.0-36.0); Mean Corpuscular Hemoglobin 31.2 pg (27.0-31.0); Mean Corpuscular Volume 95.7 fL (78.0-98.0); Mean Platelet Volume 8.6 fL (7.4-10.4); Platelet Count 99 thou/uL (130-400); RBC Distribution Width 13.5 % (11.5-14.5); Red Blood Cell (RBC) Count 2.94 mill/uL (4.70-6.10); White Blood Cell (WBC) Count 5.3 thou/uL (4.8-10.8)
[2019-02-25] MEDS: Pantoprazole 40 MG VIAL IVP SCH (09:11)
[2019-02-25] MEDS: Clopidogrel Bisulfate 75 MG TAB PER TUBE SCH (09:12)
[2019-02-25] MEDS: Aspirin Chewable 81 MG TAB PER TUBE SCH (09:12)
[2019-02-25] MEDS: Cefepime 1 GM in Sodium Chloride 0.9% 100 ML IVPB SCH ×2 (09:12→20:18)
[2019-02-25] MEDS ORDERED: Morphine 4 MG/ML VIAL SLOW IVP PRN (10:05)
[2019-02-25] MEDS: traMADol HCl 50 MG TAB PO SCH ×3 (10:20→22:17)
[2019-02-25] MEDS ORDERED: Sodium Phosphate 30 MMOL in Sodium Chloride 0.9% 250 ML 250 ML IVPB SCH (10:30)
--- NOTE | 2019-02-25 10:31 | PRG ---
DATE OF SERVICE: 02/25/2019 SERVICE: Pulmonary Medicine. INTERVAL HISTORY: The patient extubated just fine yesterday, but shortly after that, he developed increasing discomfort, and increasing somnolence. Ultimately , he had to get bagged again for a short period of time, but then woke back up. He did well for a couple of hours, but then had a similar event. We put him on BiPAP and since then, his chest discomfort and respiratory issues improved dramatically. Overnight, he had absolutely no events. This morning, he is little bit more bradycardic. The Precedex had been weaned very nicely. We gave him a BiPAP break and almost immediately, he started having increasing chest discomfort, associated with rib fractures. He denies any current fevers, chills, nausea, or vomiting. He is having significant chest discomfort without the BiPAP. PHYSICAL EXAMINATION: VITAL SIGNS: Afebrile, pulse 51, blood pressure 132/29, respirations 16, and saturation 98% on 2 L nasal cannula. GENERAL: The patient is awake and alert, mild distress, secondary to discomfort. HEART: Normal rate. Regular. ABDOMEN: Soft, nontender, and nondistended. Bowel sounds are positive. MUSCULOSKELETAL: No cyanosis or clubbing. There is no pitting in the bilateral lower extremities. NEUROLOGIC: Grossly nonfocal. LABORATORY DATA: WBC 5.3, hemoglobin 9.2, platelets 99,000 and stable. Sodium 146, potassium 5.2, chloride 116, creatinine 0.85 and downtrending. AST and ALT continued to trend downward and/or are stable. Phosphorus 2.2. ASSESSMENT: 1. Acute on chronic hypoxic respiratory failure. 2. Acute ST-elevation myocardial infarction, status post percutaneous coronary intervention with stent placement. 3. Ventricular fibrillation/tachycardia arrest, out of hospital, status post return of circulation. 4. Anoxic brain injury, improving. 5. Chronic obstructive pulmonary disease with mild exacerbation. 6. Community-acquired pneumonia, status post full course of antibiotic. 7. Multiple rib fractures. DISCUSSION AND PLAN: We will go on and off the BiPAP through the day. I will initiate a rib fracture protocol. If he cannot tolerate breaks from the BiPAP over the next 24 to 48 hours, he will likely need repeat intubation and subsequent tracheostomy until his chest mechanics improved. I will replace his phosphorus. We will introduce some free water to get the sodium down to touch. He remains a little volume up, but he is auto diuresing gently. We will allow him to continue doing this. Pulmonary/Critical Care will continue to follow along. Job ID: [id number] MTDD
[2019-02-25] MEDS: Acetaminophen 325 MG TAB PO SCH ×3 (11:19→23:15)
[2019-02-25] MEDS: Ibuprofen 600 MG TAB PO SCH ×3 (11:19→22:19)
[2019-02-25] MEDS: Dextrose 5% in Water 1,000 ML IV SCH (11:19)
--- NOTE | 2019-02-25 11:56 | RAD ---
EXAM: Single view of the abdomen HISTORY: Dobbhoff placement COMPARISON: None FINDINGS: Single view of the upper abdomen shows a nonspecific, nonobstructive bowel gas pattern. A D obbhoff tube is seen with its tip in the left upper quadrant of the abdomen, likely within the stomach. No suspicious calcifications are seen. Post surgical changes are seen in the lumbar spine. A spinal stimulation device is visualized with its tip at the T7 level. IMPRESSION: Dobbhoff tube located in the stomach.
[2019-02-25] MEDS: Cyclobenzaprine 10 MG TAB PO PRN (12:00)
[2019-02-25] MEDS: Gabapentin 100 MG CAP PO SCH ×2 (15:20→20:19)
[2019-02-25] MEDS: Famotidine 20 MG TAB PO SCH (20:19)
[2019-02-26] MEDS: traMADol HCl 50 MG TAB PO SCH ×4 (04:19→22:53)
[2019-02-26] MEDS: Ibuprofen 600 MG TAB PO SCH ×4 (04:19→22:54)
[2019-02-26 05:05] LABS: #Eosinphils 0.1 thou/uL (0.0-0.7); #Lymphocytes 0.6 thou/uL (1.20-3.40); #Monocytes 0.7 thou/uL (0.11-0.59); #Neutrophils 5.3 thou/uL (1.40-6.50); %Basophils 0.4 % (0.0-1.0); %Eosinophils 1.4 % (0.0-10.0); %Lymphocytes 9.2 % (21.0-51.0); %Monocytes 10.6 % (0.0-10.0); %Neutrophils 78.4 % (42.0-75.0); Hemoglobin 9.8 g/dL (14.0-18.0); Mean Corpuscular HGB CONC 33.6 g/dL (32.0-36.0); Mean Corpuscular Hemoglobin 31.9 pg (27.0-31.0); Mean Corpuscular Volume 94.9 fL (78.0-98.0); Mean Platelet Volume 8.1 fL (7.4-10.4); Platelet Count 132 thou/uL (130-400); RBC Distribution Width 13.4 % (11.5-14.5); Red Blood Cell (RBC) Count 3.06 mill/uL (4.70-6.10); White Blood Cell (WBC) Count 6.8 thou/uL (4.8-10.8)
[2019-02-26 05:10] LABS: ALT (SGPT) 161 U/L (8-55); AST (SGOT) 167 U/L (5-34); Albumin 2.8 g/dL (3.4-4.8); Alkaline Phosphatase 82 U/L (40-150); Anion Gap 11 mmol/L (10-20); BUN (Urea Nitrogen) 41 mg/dL (8.4-25.7); Bilirubin, Total 1.2 mg/dL (0.2-1.2); Calc. Creatinine Clearance 57 mL/min (70-130); Carbon Dioxide 27 mmol/L (23-31); Chloride 113 mmol/L (98-107); Estimated GFR-MDRD 70; Globulin 1.9 g/dL (2.4-3.5); Glucose 110 mg/dL (83-110); Potassium 3.9 mmol/L (3.5-5.1); Protein, Total 4.7 g/dL (5.8-8.1); Sodium 147 mmol/L (136-145)
[2019-02-26] MEDS: Acetaminophen 325 MG TAB PO SCH ×4 (06:51→23:00)
[2019-02-26] MEDS: Famotidine 20 MG TAB PO SCH ×2 (08:35→20:21)
[2019-02-26] MEDS: Aspirin Chewable 81 MG TAB PER TUBE SCH (08:35)
[2019-02-26] MEDS: Cefepime 1 GM in Sodium Chloride 0.9% 100 ML IVPB SCH ×2 (08:35→20:20)
[2019-02-26] MEDS: Gabapentin 100 MG CAP PO SCH ×3 (08:35→20:20)
[2019-02-26] MEDS: Clopidogrel Bisulfate 75 MG TAB PER TUBE SCH (08:35)
[2019-02-26] MEDS ORDERED: DC Sedation Protocol FS ONE (08:48)
--- NOTE | 2019-02-26 09:06 | PRG ---
DATE OF SERVICE: 02/26/2019 SUBJECTIVE: This morning, he is awake, alert, responsive, less encephalopathic. He was extubated and is doing well. OBJECTIVE: VITAL SIGNS: Saturations are 97% on 3 L, temperature 98, blood pressure 146/60, and heart rate is 60. CHEST: Minimal rhonchi. CARDIAC: Normal S1 and S2. No gallops. ABDOMEN: No masses. DIAGNOSTIC DATA: His liver function is improved. His albumin is 2.8. His white count is 6000. Cultures so far are all negative. ASSESSMENT: 1. Status post myocardial infarction, emergency stent. 2. Respiratory failure with encephalopathy. 3. Aspiration pneumonia. PLAN: We will keep him in the ICU. I am going to stop all his sedation including the Precedex antibiotics switched over to oral medication. He was able to swallow in the next 24 to 48 hours. Await input from Cardiology. Job ID: [id number]
--- NOTE | 2019-02-26 09:32 | PDOC.CTH ---
Cardiology Progress Note - Subjective Confused. No complaints - Objective Vital Signs Temp Pulse Resp Pulse Ox 02/26/19 07:58 97 02/26/19 07:15 98.0 F 02/26/19 06:57 87 9 L 98 02/26/19 06:55 58 L 98 02/26/19 06:00 12 02/26/19 04:00 97.7 F 10 L 02/26/19 03:59 68 02/26/19 00:52 58 L 13 96 02/26/19 00:00 97.9 F Admit Weight 139 lb 5.314 oz Weight 141 lb 3.2 oz 02/25/19 02/26/19 02/27/19 06:59 06:59 06:59 Intake Total 1062 3220 30 Output Total 1315 1235 35 Balance -253 1984 - - Physical Examination General/Neuro: NAD Neck: no JVD present Lungs: unlabored respirations Heart: RRR Abdomen: NT/ND, soft Extremities: + femoral B - Labs Result Diagrams: 02/26/19 04:45 02/26/19 04:45 Troponin/CKMB CK-MB (CK-2) 89.2 ng/mL (0-6.6) H* 02/20/19 17:55 Troponin I 14.530 ng/mL (< 0.028) H* 02/20/19 17:55 - Assessment/Plan AMI Encephalopathy Aspiration pneumonia No CV cnahges Slowly improving on TF ASA, plavix
[2019-02-26] MEDS: Dextrose 5% in Water 1,000 ML IV SCH (13:16)
[2019-02-26] MEDS: Cyclobenzaprine 10 MG TAB PO PRN (20:22)
[2019-02-27] MEDS: Dextrose 5% in Water 1,000 ML IV SCH (02:15)
[2019-02-27] MEDS: Ibuprofen 600 MG TAB PO SCH (04:08)
[2019-02-27] MEDS: traMADol HCl 50 MG TAB PO SCH ×4 (04:08→22:30)
[2019-02-27 04:40] LABS: ALT (SGPT) 144 U/L (8-55); AST (SGOT) 99 U/L (5-34); Albumin 2.6 g/dL (3.4-4.8); Alkaline Phosphatase 86 U/L (40-150); Anion Gap 11 mmol/L (10-20); BUN (Urea Nitrogen) 32 mg/dL (8.4-25.7); Bilirubin, Total 0.8 mg/dL (0.2-1.2); Calc. Creatinine Clearance 63 mL/min (70-130); Calcium 8.9 mg/dL (7.8-10.44); Carbon Dioxide 23 mmol/L (23-31); Chloride 109 mmol/L (98-107); Estimated GFR-MDRD 77; Globulin 2.2 g/dL (2.4-3.5); Glucose 102 mg/dL (83-110); Protein, Total 4.8 g/dL (5.8-8.1); Sodium 139 mmol/L (136-145)
[2019-02-27] MEDS: Acetaminophen 325 MG TAB PO SCH (06:47)
[2019-02-27 07:28] LABS: #Eosinphils 0.3 thou/uL (0.0-0.7); #Monocytes 0.5 thou/uL (0.11-0.59); #Neutrophils 5.6 thou/uL (1.40-6.50); %Basophils 0.3 % (0.0-1.0); %Eosinophils 3.7 % (0.0-10.0); %Lymphocytes 13.3 % (21.0-51.0); %Monocytes 7.2 % (0.0-10.0); %Neutrophils 75.5 % (42.0-75.0); Hemoglobin 10.5 g/dL (14.0-18.0); Mean Corpuscular Hemoglobin 30.8 pg (27.0-31.0); Mean Corpuscular Volume 96.2 fL (78.0-98.0); Mean Platelet Volume 8.1 fL (7.4-10.4); Platelet Count 181 thou/uL (130-400); RBC Distribution Width 13.6 % (11.5-14.5); White Blood Cell (WBC) Count 7.4 thou/uL (4.8-10.8)
[2019-02-27] MEDS ORDERED: traMADol HCl 50 MG TAB PO PRN (08:01)
--- NOTE | 2019-02-27 08:22 | PRG ---
DATE OF SERVICE: 02/27/2019 SUBJECTIVE: This morning, he is little bit more responsive, less encephalopathic. OBJECTIVE: VITAL SIGNS: His blood pressure is 156/85, saturations are 100% on 3 L, pulse 80, respirations 18, and afebrile. CHEST: Decreased breath sounds. No wheezing. CARDIAC: Normal S1 and S2. No gallop. ABDOMEN: No masses. LABORATORY DATA: Unremarkable. His liver function decreased, ALT is 144. IMPRESSION: 1. Status post sudden cardiac //s/p _ stent in the left anterior descending. 2. Congestive heart failure. 3. Respiratory failure. 4. Aspiration pneumonia. 5. Encephalopathy. PLAN: If he is swallowing, I am going to discontinue his IV antibiotics, switch him over to p.o. medication. PT, supportive care. Continue observation in the ICU until he is more stable. Disposition as per Cardiology. We will follow. Job ID: [id number] MTDD
[2019-02-27] MEDS ORDERED: Ibuprofen 800 MG TAB PO PRN (08:33)
[2019-02-27] MEDS: Acetaminophen 500 MG TAB PO SCH ×3 (09:00→20:26)
[2019-02-27] MEDS: Clopidogrel Bisulfate 75 MG TAB PER TUBE SCH (09:00)
[2019-02-27] MEDS: Aspirin Chewable 81 MG TAB PER TUBE SCH (09:00)
[2019-02-27] MEDS: Metoprolol Tartrate 25 MG TAB PO SCH ×2 (09:00→20:26)
[2019-02-27] MEDS: Famotidine 20 MG TAB PO SCH ×2 (09:00→20:26)
[2019-02-27] MEDS: Gabapentin 100 MG CAP PO SCH ×3 (09:01→20:26)
[2019-02-27] MEDS: Cefdinir 300 MG CAP PO SCH ×2 (09:01→20:26)
[2019-02-27] MEDS: Cyclobenzaprine 10 MG TAB PO PRN ×2 (10:47→20:28)
[2019-02-27] MEDS ORDERED: Atorvastatin Calcium 10 MG TAB PO SCH (21:00)
[2019-02-28] MEDS: Acetaminophen 500 MG TAB PO SCH ×4 (03:00→20:43)
[2019-02-28] MEDS: traMADol HCl 50 MG TAB PO SCH ×4 (04:30→22:28)
[2019-02-28 05:15] LABS: #Basophils 0.1 thou/uL (0.0-0.2); #Eosinphils 0.2 thou/uL (0.0-0.7); #Lymphocytes 0.8 thou/uL (1.20-3.40); #Monocytes 0.6 thou/uL (0.11-0.59); #Neutrophils 6.1 thou/uL (1.40-6.50); %Basophils 0.7 % (0.0-1.0); %Eosinophils 2.9 % (0.0-10.0); %Lymphocytes 10.3 % (21.0-51.0); %Monocytes 8.1 % (0.0-10.0); Hemoglobin 10.1 g/dL (14.0-18.0); Mean Corpuscular HGB CONC 31.9 g/dL (32.0-36.0); Mean Corpuscular Hemoglobin 30.2 pg (27.0-31.0); Mean Corpuscular Volume 94.7 fL (78.0-98.0); Mean Platelet Volume 8.1 fL (7.4-10.4); Platelet Count 206 thou/uL (130-400); RBC Distribution Width 13.6 % (11.5-14.5); Red Blood Cell (RBC) Count 3.33 mill/uL (4.70-6.10); White Blood Cell (WBC) Count 7.8 thou/uL (4.8-10.8)
[2019-02-28 05:35] LABS: ALT (SGPT) 92 U/L (8-55); AST (SGOT) 55 U/L (5-34); Albumin 2.5 g/dL (3.4-4.8); Alkaline Phosphatase 85 U/L (40-150); Anion Gap 10 mmol/L (10-20); BUN (Urea Nitrogen) 28 mg/dL (8.4-25.7); Bilirubin, Total 0.8 mg/dL (0.2-1.2); Calc. Creatinine Clearance 64 mL/min (70-130); Calcium 8.8 mg/dL (7.8-10.44); Carbon Dioxide 28 mmol/L (23-31); Chloride 103 mmol/L (98-107); Estimated GFR-MDRD 79; Glucose 95 mg/dL (83-110); Potassium 3.8 mmol/L (3.5-5.1); Protein, Total 4.5 g/dL (5.8-8.1); Sodium 137 mmol/L (136-145)
[2019-02-28 06:17] VITALS: BMI 21.3
[2019-02-28] MEDS: Clopidogrel Bisulfate 75 MG TAB PER TUBE SCH (08:34)
[2019-02-28] MEDS: Cefdinir 300 MG CAP PO SCH ×2 (08:34→20:43)
[2019-02-28] MEDS: Gabapentin 100 MG CAP PO SCH ×3 (08:34→20:43)
[2019-02-28] MEDS: Metoprolol Tartrate 25 MG TAB PO SCH ×2 (08:34→20:43)
[2019-02-28] MEDS: Aspirin Chewable 81 MG TAB PER TUBE SCH (08:34)
[2019-02-28] MEDS: Famotidine 20 MG TAB PO SCH ×2 (08:34→20:43)
[2019-02-28] MEDS: Cyclobenzaprine 10 MG TAB PO PRN (08:35)
--- NOTE | 2019-02-28 08:48 | PRG ---
DATE OF SERVICE: 02/28/2019 SUBJECTIVE: This morning, he is much awake and responsive, no distress. OBJECTIVE: VITAL SIGNS: Saturations are 95% on 2 L, 130\74, blood pressure 126/77, respirations 18. He is afebrile. CHEST: Decreased breath sounds. No wheezing or crackles. CARDIAC: Normal S1, S2. No gallops. ABDOMEN: No masses. LABORATORY DATA: Unremarkable, except for albumin being low at 2.5. Lytes are normal. White count is unremarkable. Platelet count is normal. IMPRESSION: 1. Status post myocardial infarction. 2. Status post anoxic injury, encephalopathy, improved. 3. Aspiration pneumonia, stable. PLAN: PT, supportive care, nutrition. Disposition as per Cardiology. Can probably be transferred over to the telemetry unit. Job ID: [id number] MTDD
[2019-02-28] MEDS: Aspirin Chewable 81 MG TAB PO SCH (09:33)
[2019-02-28] MEDS: Clopidogrel Bisulfate 75 MG TAB PO SCH (09:33)
[2019-02-28] MEDS: Dextrose 5% in Water 1,000 ML IV SCH (14:41)
[2019-03-01] MEDS: traMADol HCl 50 MG TAB PO SCH ×2 (03:38→09:59)
[2019-03-01] MEDS: Acetaminophen 500 MG TAB PO SCH ×4 (03:38→22:08)
[2019-03-01] MEDS ORDERED: Furosemide 20 MG/2 ML VIAL SLOW IVP SCH (08:30)
[2019-03-01] MEDS: Famotidine 20 MG TAB PO SCH ×2 (08:58→22:09)
[2019-03-01] MEDS: Cefdinir 300 MG CAP PO SCH ×2 (08:58→22:09)
[2019-03-01] MEDS: Aspirin Chewable 81 MG TAB PO SCH (08:58)
[2019-03-01] MEDS: Metoprolol Tartrate 25 MG TAB PO SCH ×2 (08:58→22:09)
[2019-03-01] MEDS: Gabapentin 100 MG CAP PO SCH ×3 (08:58→22:09)
[2019-03-01] MEDS: Clopidogrel Bisulfate 75 MG TAB PO SCH (08:58)
--- NOTE | 2019-03-01 09:53 | PRG ---
DATE OF SERVICE: 03/01/2019 SUBJECTIVE: Boaz Harris is better this morning. Still having significant chest wall pain from his fractured ribs. OBJECTIVE: VITAL SIGNS: Saturations are 96% on 2 L, respiratory rate 18, pulse 58, temperature 97.5, blood pressure 127/70. CHEST: No wheezing or crackles. CARDIAC: Normal S1, S2. No gallops. ABDOMEN: No masses. IMPRESSION: 1. Status post myocardial infarction, stent. 2. chronic obstructive pulmonary disease. 3. Pneumonia. PLAN: He appears to be stable enough to go to the outpatient rehab. He can resume his home medication, which includes Symbicort and Combivent. Job ID: [id number]
[2019-03-01] MEDS ORDERED: traMADol HCl 50 MG TAB PO PRN (14:15)
[2019-03-02] MEDS: Acetaminophen 500 MG TAB PO SCH ×3 (04:33→15:04)
[2019-03-02 06:04] LABS: #Basophils 0.1 thou/uL (0.0-0.2); #Eosinphils 0.1 thou/uL (0.0-0.7); #Lymphocytes 0.6 thou/uL (1.20-3.40); #Monocytes 0.8 thou/uL (0.11-0.59); #Neutrophils 6.1 thou/uL (1.40-6.50); %Basophils 0.7 % (0.0-1.0); %Eosinophils 1.4 % (0.0-10.0); %Lymphocytes 8.2 % (21.0-51.0); %Monocytes 10.2 % (0.0-10.0); %Neutrophils 79.6 % (42.0-75.0); Hemoglobin 9.6 g/dL (14.0-18.0); Mean Corpuscular HGB CONC 32.5 g/dL (32.0-36.0); Mean Corpuscular Hemoglobin 30.4 pg (27.0-31.0); Mean Corpuscular Volume 93.7 fL (78.0-98.0); Mean Platelet Volume 7.8 fL (7.4-10.4); Platelet Count 282 thou/uL (130-400); RBC Distribution Width 13.6 % (11.5-14.5); Red Blood Cell (RBC) Count 3.15 mill/uL (4.70-6.10); White Blood Cell (WBC) Count 7.6 thou/uL (4.8-10.8)
[2019-03-02 06:27] LABS: ALT (SGPT) 71 U/L (8-55); AST (SGOT) 52 U/L (5-34); Albumin 2.7 g/dL (3.4-4.8); Alkaline Phosphatase 126 U/L (40-150); Anion Gap 10 mmol/L (10-20); BUN (Urea Nitrogen) 20 mg/dL (8.4-25.7); Bilirubin, Total 0.7 mg/dL (0.2-1.2); Calc. Creatinine Clearance 72 mL/min (70-130); Calcium 8.8 mg/dL (7.8-10.44); Carbon Dioxide 30 mmol/L (23-31); Chloride 102 mmol/L (98-107); Estimated GFR-MDRD 83; Globulin 2.2 g/dL (2.4-3.5); Glucose 102 mg/dL (83-110); Potassium 3.4 mmol/L (3.5-5.1); Protein, Total 4.9 g/dL (5.8-8.1); Sodium 139 mmol/L (136-145)
--- NOTE | 2019-03-02 09:06 | RAD ---
CHEST 1 VIEW: Date: 03/02/19 INDICATION: History of right lower lobe pneumonia. COMPARISON: Prior exam dated 02/23/19. FINDINGS: The extent of the consolidation appears slightly less prominent; however, air space disease remains. This is superimposed on severe COPD change. No perry pleural effusion or pneumothorax is evident. Chr onic osseous change is similar appearing. There is a dorsal column stimulator overlying mid thoracic vertebra. Since the comparison examination, the patient has been extubated with removal of the gastri c catheter. IMPRESSION: 1. Some improvement in the right lower lobe pneumonia. 2. Interval extubation and gastric catheter removal. POS: CET
[2019-03-02] MEDS: Aspirin Chewable 81 MG TAB PO SCH (09:43)
[2019-03-02] MEDS: Metoprolol Tartrate 25 MG TAB PO SCH (09:43)
[2019-03-02] MEDS: Famotidine 20 MG TAB PO SCH (09:44)
[2019-03-02] MEDS: Gabapentin 100 MG CAP PO SCH ×2 (09:44→15:00)
[2019-03-02] MEDS: Clopidogrel Bisulfate 75 MG TAB PO SCH (09:44)
[2019-03-02] MEDS: Cefdinir 300 MG CAP PO SCH (09:45)
[2019-03-02] MEDS: Cyclobenzaprine 10 MG TAB PO PRN (09:55)
--- NOTE | 2019-03-02 10:30 | PRG ---
DATE OF SERVICE: 03/02/2019 SUBJECTIVE: Boaz Harris is a 73-year-old gentleman. This morning, apparently he is coughing some blood. I had reviewed his hemoptysis, some old blood. The right-sided infiltrate in his x-ray is looking better. Some other who out this is probably aggravated by his Plavix and aspirin he is taking. He is weak. OBJECTIVE: VITAL SIGNS: His sats are 95% on 2 L, respirations 16, temperature 97, and blood pressure 125/65. CHEST: Decreased breath sounds. No wheezing. CARDIAC: Normal S1 and S2. No gallops. ABDOMEN: No masses. LABORATORY DATA: His liver function improved. White count 7.2, hemoglobin and hematocrit of 9 and 29. IMPRESSION: 1. Status post respiratory failure, status post myocardial infarction, status post emergency stent. 2. Encephalopathy, anoxic injury, improved. 3. Aspiration pneumonia. PLAN: At this stage, nothing additional to offer. Continue antibiotics as prescribed, neb treatment, supportive care. Hemoptysis worsens and may have to consider adjusting his anticoagulation. Job ID: [id number]
[2019-03-02] MEDS ORDERED: Potassium Chloride 20 MEQ TAB PO SCH (12:30)
[2019-03-02 15:07] VITALS: BP 131/61; TEMP 97.5
--- NOTE | 2019-03-03 05:18 | DIS ---
DATE OF ADMISSION: 02/19/2019 DATE OF DISCHARGE: 03/02/2019 DISCHARGE DIAGNOSIS: 1. Ventricular fibrillation cardiac arrest with bystander CPR. 2. Anterior ST-elevation myocardial infarction with drug-eluting stent placed in the mid LAD for 100% in-stent occlusion, troponin I 14.530. 3. History of mid LAD stent placement at [facility] in October 2017. 4. Ejection fraction 55% to 60%. 5. Negative head CT and C-spine. 6. Right eyebrow laceration closed by trauma service. 7. Shock liver. AST 234, down to 52 and ALT 201, down to 71 at the time of discharge. Statin not started. 8. Hypoxic encephalopathy, improving. 9. Acute kidney injury, resolved. 10. Drop in hemoglobin from 12.2 to 8.5. Pepcid was started with stabilization of hemoglobin around 10. 11. Thrombocytopenia, resolved. 12. Probable aspiration pneumonia. 13. Former smoker. DISCHARGE DISPOSITION: Patient is being discharged to jail in [place]. DISCHARGE DISPOSITION: The patient will follow up with his [facility] transportation security screener. DISCHARGE MEDICATIONS: 1. Furosemide 40 mg q.a.m. 2. KCl 10 mEq daily. 3. Omnicef 300 mg b.i.d. x5 days. 4. Aspirin 81 daily. 5. Plavix 75 mg q.a.m. 6. Pepcid 20 mg b.i.d. 7. DuoNebs q.6 hours. 8. Metoprolol 25 b.i.d. HOSPITAL COURSE: Mr. Harris had previously had a PROMUS 2.75 x 28 mm stent placed in the mid LAD at [facility]. This was post dilated with a 3 mm balloon. He was at [employer] on [address], initially complained of chest pain. He bent over to diamond picker something, fell forward and was unresponsive. He struck his forehead and had a 2 to 3 cm laceration over his right eyebrow. Bystander CPR was started as he was unresponsive without pulse. When paramedics arrived, he was given 2 electrical shocks and then he had spontaneous return of circulation. In the emergency room, he was given amiodarone 150 mg IV, 2 amps of bicarb IV, and magnesium. EKG showed anterior ST-segment elevation consistent with STEMI. He was intubated and unresponsive in the emergency room. However, with bystander CPR, it was felt best to take him to the emergency room urgently. At catheterization, he was found to have a total occlusion of mid LAD stent. There was a 60% first obtuse marginal, 20% mid RCA, 20% right posterolateral stenosis. He underwent placement of a Synergy drug-eluting stent 2.5 x 16 mm with reduction of the stenosis from 100% to 0%. He was transferred to the critical care unit and placed on cooling protocol. It was also felt that he might have developed aspiration pneumonia. His liver function tests were high even at the time of admission, but had been gradually falling. Two days after admission, his creatinine increased to 1.70, however, at the time of discharge, is back to 0.90. Cholesterol 145, triglycerides 57, HDL 65, LDL 69. With his elevated liver function tests, he was not placed on a statin during this admission. He was sedated for approximately 3 days, but gradually weaned from the ventilator. He was initially confused, but this has continued to improve throughout his hospital stay. At the time of discharge, he is alert and oriented x3. Echocardiogram revealed the study to be technically difficult. Ejection fraction was 55% to 60% with hypokinesis of the apical septal wall and apex. There is evidence for diastolic dysfunction. He did have peripheral edema at the time of discharge and was placed on furosemide 40 mg q.a.m. and KCl 10 mEq q.a.m. Job ID: [id number]
== END 2019-03-02 17:01 | DRG 246 ==
LOC: EDBD 19:12 → ERS 19:12 → CCU 21:31 → 2NO 02-28 12:47
PROVIDERS: ADMIT Internal Medicine Cardiovascular Disease; ATTEND Internal Medicine Cardiovascular Disease
PROC: 027034Z Dilation of Coronary Artery, One Artery with Drug-eluting Intraluminal Device, Percutaneous Approach (ICD-10-PCS; 2019-02-19)
PROC: 0HQ1XZZ Repair Face Skin, External Approach (ICD-10-PCS; 2019-02-19)
PROC: 0B21XEZ Change Endotracheal Airway in Trachea, External Approach (ICD-10-PCS; principal; 2019-02-22)
PROC: 0B9K8ZX Drainage of Right Lung, Via Natural or Artificial Opening Endoscopic, Diagnostic (ICD-10-PCS; 2019-02-22)
PROC: 4A023N7 Measurement of Cardiac Sampling and Pressure, Left Heart, Percutaneous Approach (ICD-10-PCS; 2019-02-22)
PROC: B2111ZZ Fluoroscopy of Multiple Coronary Arteries using Low Osmolar Contrast (ICD-10-PCS; 2019-02-22)
DX: I21.09 ST elevation (STEMI) myocardial infarction involving other coronary artery of anterior wall (principal); I46.9 Cardiac arrest, cause unspecified; J69.0 Pneumonitis due to inhalation of food and vomit; K72.00 Acute and subacute hepatic failure without coma; J96.01 Acute respiratory failure with hypoxia; G93.1 Anoxic brain damage, not elsewhere classified; N17.9 Acute kidney failure, unspecified; I25.10 Atherosclerotic heart disease of native coronary artery without angina pectoris; J44.9 Chronic obstructive pulmonary disease, unspecified; N40.0 Benign prostatic hyperplasia without lower urinary tract symptoms; S01.111A Laceration without foreign body of right eyelid and periocular area, initial encounter; W18.30XA Fall on same level, unspecified, initial encounter; Y92.512 Supermarket, store or market as the place of occurrence of the external cause; I10 Essential (primary) hypertension; M54.9 Dorsalgia, unspecified; R79.89 Other specified abnormal findings of blood chemistry; Z79.82 Long term (current) use of aspirin; Z88.6 Allergy status to analgesic agent; Z87.891 Personal history of nicotine dependence; Z95.5 Presence of coronary angioplasty implant and graft
CPT/HCPCS: 36415; 36416; 36556; 51702; 70450; 71045; 72125; 74018; 80053; 80061; 81003; 81015; 82553; 82805; 83605; 83690; 83735; 83880; 84100; 84484; 85025; 85347; 85610; 85730; 86850; 86900; 86901; 92928; 93005; 93010; 93306; 93458; 93798; 94002; 94003; 94640; 94660; 94760; 96374; 96375; A4216; C1725; C1769; C1887; C9113; C9600; J0583; J0692; J1644; J1940; J2001; J2060; J2270; J2704; J2920; J3010; J3490; J7050; J7620

== ENCOUNTER 2019-03-08 16:33 | Emergency (ER) | payer MEDICARE ==
--- NOTE | 2019-03-08 17:12 | RAD ---
AP view chest. HISTORY: Cough. AP view chest is obtained on 03/08/2019. Comparison made to previous exam from 03/02/2019. EKG leads seen over the chest. Dorsal column stimulator in the midthoracic region. There is improved aeration in the right lower lobe. Pulmonary vascular congestion seen. No evidence o f effusion seen. No evidence of residual pneumonia or pneumothorax seen. IMPRESSION: Resolved right lower lobe pneumonia.
[2019-03-08 17:37] LABS: #Basophils 0.1 thou/uL (0.0-0.2); #Eosinphils 0.1 thou/uL (0.0-0.7); #Lymphocytes 0.8 thou/uL (1.20-3.40); #Monocytes 0.6 thou/uL (0.11-0.59); #Neutrophils 4.3 thou/uL (1.40-6.50); %Basophils 2.1 % (0.0-1.0); %Eosinophils 1.2 % (0.0-10.0); %Lymphocytes 13.3 % (21.0-51.0); %Monocytes 10.6 % (0.0-10.0); %Neutrophils 72.9 % (42.0-75.0); Hemoglobin 9.3 g/dL (14.0-18.0); Mean Corpuscular HGB CONC 32.5 g/dL (32.0-36.0); Mean Corpuscular Hemoglobin 30.9 pg (27.0-31.0); Mean Corpuscular Volume 95.2 fL (78.0-98.0); Mean Platelet Volume 7.1 fL (7.4-10.4); Platelet Count 366 thou/uL (130-400); RBC Distribution Width 14.6 % (11.5-14.5); Red Blood Cell (RBC) Count 3.02 mill/uL (4.70-6.10); White Blood Cell (WBC) Count 5.9 thou/uL (4.8-10.8)
[2019-03-08 18:00] LABS: ALT (SGPT) 40 U/L (8-55); AST (SGOT) 33 U/L (5-34); Albumin 3.3 g/dL (3.4-4.8); Alkaline Phosphatase 145 U/L (40-150); Anion Gap 12 mmol/L (10-20); BUN (Urea Nitrogen) 18 mg/dL (8.4-25.7); Bilirubin, Total 0.5 mg/dL (0.2-1.2); Calc. Creatinine Clearance 0 mL/min (70-130); Calcium 9.2 mg/dL (7.8-10.44); Carbon Dioxide 29 mmol/L (23-31); Chloride 100 mmol/L (98-107); Estimated GFR-MDRD 60; Globulin 2.2 g/dL (2.4-3.5); Glucose 90 mg/dL (83-110); Protein, Total 5.5 g/dL (5.8-8.1); Sodium 137 mmol/L (136-145)
--- NOTE | 2019-03-08 18:41 | CT ---
CT ANGIOGRAM THORAX WITH IV CONTRAST AND 3-D RECONSTRUCTIONS CLINICAL INDICATION: Coughing up blood. History of aspiration pneumonia. COMPARISON: None FINDINGS: Pulmonary arteries: No filling defects are seen in the pulmonary arteries to suggest a pulmonary embo lonnie. Aorta: Vascular calcifications are seen in the thoracic aorta and in the coronary arteries. The thora cic aorta is normal in caliber without evidence of an aortic dissection. Lungs: There are focal areas of consolidation at the posteromedial aspect of each lower lobe larger i n size on the right which may be related to bibasilar pneumonia or possibly aspiration pneumonitis. Emphysematous changes are seen within the lungs bilaterally with scattered linear areas of scarring p resent. A calcified granuloma is present at the right lung base. Mediastinum: There is a trace pericardial effusion. No enlarged lymph nodes are seen. Thyroid gland: There is a tiny subcentimeter hypodense nodule right lobe of the thyroid gland. Osseous structures: Degenerative changes are seen in the spine. There is a dorsal column stimulator d evice in place with leads seen within the central canal extending to the T6-7 level. Chest wall: No abnormality visualized. Upper abdomen: Calcified granulomata are seen in the liver and spleen. Vascular calcifications are se en in the visualized upper abdominal aorta. Incidental note is made of an extrarenal pelvis on the left. IMPRESSION: 1. Focal areas of consolidation at the posterior medial aspect of each lower lobe, larger in size on the right. Findings may be related to bibasilar pneumonia, and atypical pneumonia is a possibility. Aspiration pneumonitis is also a differential consideration. Follow-up to resolution is recommended. 2. Chronic lung changes and evidence of COPD. 3. Trace pericardial effusion. 4. No CT evidence of a pulmonary embolus. 5. Vascular calcifications in the coronary arteries and involving the thoracic aorta.
--- NOTE | 2019-03-10 15:14 | EKG ---
Test Reason : Blood Pressure : / mmHG Vent. Rate : 061 BPM Atrial Rate : 101 BPM P-R Int : 000 ms QRS Dur : 080 ms QT Int : 450 ms P-R-T Axes : 000 071 092 degrees QTc Int : 453 ms Junctional rhythm Abnormal ECG Confirmed by DAVID JACOB ([id number]), corporate counselor BRITTANEY SUÁREZ ([id number]) on 03/10/2019 3:13:42 PM Referred By: Confirmed By:DAVID JACOB
== END 2019-03-08 19:32 | disposition home or self-care (01) ==
LOC: ERS 16:33
DX: J69.0 Pneumonitis due to inhalation of food and vomit (principal); R04.2 Hemoptysis; I25.10 Atherosclerotic heart disease of native coronary artery without angina pectoris; N40.0 Benign prostatic hyperplasia without lower urinary tract symptoms; J44.9 Chronic obstructive pulmonary disease, unspecified; I10 Essential (primary) hypertension; Z87.891 Personal history of nicotine dependence; Z79.82 Long term (current) use of aspirin; Z79.899 Other long term (current) drug therapy
CPT/HCPCS: 36415; 71045; 71275; 80053; 83735; 83880; 84484; 85025; 93005